=== PATIENT | male | born 1980 | race Caucasian/White ===

== ENCOUNTER 2022-10-07 03:38 | Observation (INO) ==
--- NOTE | 2022-10-07 04:14 | Emergency Department Note ---
History of Present Illness General Chief complaint: Fall Stated complaint: FALL - HURT LFT KNEE S/P REPAIR ON MON,RT FOOT FERCHO Time Seen by Provider: 10/07/22 03:55 History of Present Illness Maximum Pain Intensity: 7 This 42-year-old who had left knee debridement and washout last week by Dr. Garcia for chronic infection that was done by an outside facility presents to the ER complaining of fall down the steps with opening up his knee and injuring his right foot Location: Left knee and right foot Quality: Painful Severity: Moderate Duration: Tonight Timing: Tonight Context: Patient was concerned and came in Modifying factors: better with rest; worse with movement Patient denies head injury, chest pain, dyspnea, numbness, tingling, localized weakness. He is currently on Keflex for the knee infection. Home Medications Medication Instructions Recorded Confirmed Type lisinopril 20 mg tablet 20 mg PO BID 09/27/22 10/02/22 History naproxen sodium 220 mg tablet 220 mg PO BID PRN Pain 09/27/22 10/02/22 History (Aleve) cephalexin 500 mg capsule 500 mg PO QID 14 days #56 caps 10/02/22 Rx oxycodone-acetaminophen 5 mg-325 1 tab PO Q4H PRN pain #30 tabs 10/02/22 Rx mg tablet (Endocet) Allergies Allergy/AdvReac Type Severity Reaction Status Date / Time suture AdvReac Severe body Verified 10/02/22 07:35 rejection Past Med/Surg History Medical History History of COVID-19 2019 > mild symptoms Hypertension Kidney stones Obesity Surgical History H/O knee surgery left knee debridement and wound vac placement S/P cystoscopy with ureteral stent placement S/P left knee arthroscopy multiple knee surgeries for post op complication S/P tendon repair left knee/patella tendon repair (initial surgery at [facility] 08/2020) Family History Other No family history of adverse response to anesthesia Social History Smoking Status: Never smoker Second Hand Exposure: No; Hx Alcohol Use: Yes Alcohol type: beer Hx Substance Use: No Preferred Language: Frisian Communication Ability: Effective Rehab Nurse Required: No Beliefs That Will Affect Care: None Current Living Situation: Alone Feels Safe at Home: Yes Assistive Devices: None Review of Systems A total of 10 systems reviewed and were otherwise negative Physical Exam Vital Signs Vital Signs - 24 hr 10/07/22 03:43 10/07/22 05:38 Temperature 36.6 C Temperature Source Temporal Artery Scan Pulse Rate 104 H Pulse Rate [Finger] 98 H Respiratory Rate 20 18 Respiratory Depth Normal Blood Pressure 111/69 Blood Pressure [Right Arm] 121/81 Blood Pressure Mean 83 Blood Pressure Mean [Right Arm] 94 Blood Pressure Position Sitting Pulse Oximetry 97 96 Oxygen Delivery Method Room Air Room Air Sepsis Recent Fever Within 48 Hours No Sepsis New/Unexplained Change in Mental Status N/A Sepsis Action Taken by Nursing No Action Required VITALS: Vitals are noted on the nurse's note and reviewed by myself. Vital signs stable. GENERAL: Pleasant patient, in no acute distress, nondiaphoretic, well-developed well-nourished. SKIN: Left knee with meek ripped open with minimal bleeding and wound VAC present, rest the skin was without rashes, erythema, edema, or bruising. There is no tenting of the skin. Capillary reflex less than 2 seconds. HEAD: Normocephalic atraumatic. EARS: External auditory canals clear, tympanic membranes pearly simth without erythema or effusion bilaterally. EYES: Pupils equal round and reactive to light and accommodation. Conjunctivae without injection, sclerae without icterus. Extraocular movements intact. NOSE: Patent, turbinates without inflammation or discharge. No sinus tenderness. MOUTH: Mucous membranes moist. Pharynx without erythema or exudate. Uvula midline. Airway patent. Tongue does not deviate. NECK: Supple without nuchal rigidity. Cervical spine is nontender. No JVD. HEART: Regular rate and rhythm LUNGS: Clear to auscultation bilaterally without wheezes, rales or rhonchi. No retractions or accessory muscle use. ABDOMEN: Positive bowel sounds x 4. Normal tympanic percussion. Soft, nonte nder, without masses or organomegaly. Salas sign negative. No guarding or rebound tenderness. No CVA tenderness MUSCULOSKELETAL: No muscle atrophy noted. Left knee with meek ripped open with minimal bleeding and wound VAC present, right lateral heater tender to palpation with contusion present. Right ankle barreto and knee nontender to palpation. Left barreto foot and ankle nontender to palpation. Pedal pulses +2 equal and present bilaterally. NEURO: Patient was alert and oriented to person place and time. Normal sensation to light and sharp touch. No focal neurological deficits. Course Administered Medications Discontinued Medications Acetaminophen (Acetaminophen 500 Mg Tab) Confirm Administered Dose 1,000 mg .ROUTE .STK-MED ONE Stop: 10/07/22 04:42 Last Admin: 10/07/22 04:43 Dose: 1,000 mg Documented By: MYRIAM Lidocaine HCl (Lidocaine 1% Local 20 Ml Vial) 20 ml INFIL NOW ONE Stop: 10/07/22 04:33 Last Admin: 10/07/22 04:44 Dose: 20 ml Documented By: CON Medical Decision Making Medical Records Attestation: I reviewed the patient's medical records. Home Medications Current Medication List: was personally reviewed by me Laboratory Data Result diagrams: 10/07/22 05:36 10/07/22 05:36 Lab Results 10/07/22 Range/Units 05:36 WBC 14.79 H (4.8-10.8) K/ul RBC 4.65 (4.63-6.08) M/uL Hgb 14.5 (14.0-18.0) g/dl Hct 40.6 (40.1-51.0) % MCV 87.3 (80.0-100.0) fL MCH 31.2 (25.0-34.0) pg MCHC 35.7 (32.0-36.0) g/dL RDW Std Deviation 36.8 (36.4-46.3) fL RDW Coeff of Abelino 11.6 (11.5-14.5) % Plt Count 301 (130-400) K/uL MPV 9.4 (9.4-12.4) fL Immature Gran % (Auto) 0.5 % Neut % (Auto) 81.5 % Lymph % (Auto) 12.0 % Garrard % (Auto) 5.3 % Eos % (Auto) 0.5 % Baso % (Auto) 0.2 % Neut # (Auto) 12.04 H (1.4-6.5) K/uL Lymph # (Auto) 1.78 (1.2-3.4) K/uL Garrard # (Auto) 0.78 (0.24-0.82) K/uL Eos # (Auto) 0.08 (0-0.50) K/uL Baso # (Auto) 0.03 (0-0.2) K/uL Immature Gran # (Auto) 0.08 H (0.00-0.02) K/uL Imaging Data Attestation: I personally reviewed and interpreted this imaging study as follows: MDM Narrative Prior records/ancillary studies reviewed and summarized above. Nursing notes reviewed. Additional history obtained from family. The patient's history was concerning for fall with recent surgery. Differential diagnosis: Etiologies such as fracture, dislocation, contusion, laceration, vascular injury, as well as others were entertained. Physical examination: As above. ER treatment provided: Splinting Indication: Foot fracture Location: Right foot Type of fx: Closed midshaft oblique Verbal consent obtained. Risks and benefits were explained with the usual cu stomary discussion. The injured extremity was identified. The patient was prepped and measured for the placement of a posterior ortho-glass splint. Splint applied in the standard fashion over a layer of webril and secured using an elastic bandage. Set into a position of function. Normal neurovascular status after placement verified by me. The patient tolerated the procedure well and the care of the splint was discussed with the patient/family. No complications. Laceration Repair Location: Left knee Total length: 10 cm Complexity: Simple Verbal consent was obtained after the risks and benefits were explained, including but not limited to bleeding, scarring, infection, pain, and bone/joint/nerve damage. At this time, the risks of the procedure are less than the risks of NOT performing the procedure. A time out was taken and the correct patient and site identified. The skin was prepped with betadine. The target area was anesthetized with 10 ml of 1% lidocaine without epinephrine. Copious irrigation was performed using nss. The skin was re-prepped with betadine and a sterile field set. The wound was explored for foreign bodies and none found. Examination revealed no injury to deep structures such as tendons, bone, or significant blood vessels. Debridement was not performed. The wound edges were approximated using 20 meek. Hemostasis and excellent approximation was achieved. Antibacterial ointment and a sterile dressing applied. Detailed wound care instructions and signs and symptoms of infection reviewed with the pt. No complications and the patient tolerated the procedure well. On reassessment the patient felt better. Diagnostics interpretation by me: Imaging studies: Foot x-ray concerning for fifth metatarsal shaft fracture per my interpretation Knee x-ray with no acute fracture, dislocation or effusion per my interpretation Consultation: A consultation was placed with orthopedics, Dr. Lorenzana. the case was discussed and diagnostics were reviewed. He recommends washing out the open wound and we stapling it. He recommends posterior splint for the foot fracture. He will admit the patient and see him in the morning. Exam and history seem consistent with foot fracture and reopening of the meek to the left knee. Ortho was consulted and recommends repairing the laceration and splinting the fracture. This was done as above. Patient was admitted to his service. By the evaluation outlined above emergent etiologies such as di slocation as well as others were deemed relatively unlikely. The pt informed about the findings as listed above. All questions were answered and pleased with the treatment. The chart was completed utilizing [employer] Speech voice recognition software. Grammatical errors, random word insertions, pronoun errors, and incomplete sentences are an occassional consequence of this system due to software limitations, ambient noise, and hardware issues. Any formal questions or concerns about the content, text, or information contained within the body of this dictation should be directly addressed to the physician photo studio assistant for clarification. Impression & Plan Open knee wound, Foot fracture, right, Fall Discharge Plan Visit Data Chief Complaint: Fall Stated Complaint: FALL - HURT LFT KNEE S/P REPAIR ON MON,RT FOOT FERCHO ED Provider: Steph Rojas ED Midlevel Provider: Keisha Bonilla Discharge Problem: Open knee wound, Foot fracture, right, Fall Patient Disposition: Admitted As Inpatient Condition: Good Discharge Instructions Krames/Other Patient Handouts: ED Fracture, Foot Activity Restrictions/Additional Instructions: Forms Stand Alone Forms: Virtual Emergency Department, Important Visit Information Prescriptions Prescriptions: No Action lisinopril 20 mg Tablet 20 mg PO BID naproxen sodium [Aleve] 220 mg Tablet 220 mg PO BID PRN (Reason: Pain) cephalexin 500 mg capsule 500 mg PO QID 14 Days Qty: 56 0RF oxycodone-acetaminophen [Endocet] 5-325 mg tablet 1 tab PO Q4H PRN (Reason: pain) Qty: 30 0RF Referrals Referrals: Figueroa Ivy D.O. [Primary Care Provider] - : Open knee wound Qualifiers: Encounter type: initial encounter Laterality: left Qualified Code(s): S81.002A - Unspecified open wound, left knee, initial encounter
[2022-10-07] MEDS ORDERED: LIDOCAINE 1% LOCAL 20 ML VIAL INFIL ONE (04:32)
[2022-10-07] MEDS ORDERED: ACETAMINOPHEN 500 MG TAB ONE (04:41)
[2022-10-07] MEDS ORDERED: VANCOMYCIN HCL 2,250 MG in SODIUM CHLORIDE 0.9% 500 ML IV ONE (05:18)
[2022-10-07] MEDS ORDERED: VANCOMYCIN CONSULT ACTIVE PRN (05:18)
[2022-10-07 05:50] LABS: Basophils # (auto) 0.03 K/uL (0-0.2); Basophils % (auto) 0.2 %; Eosinophils # (auto) 0.08 K/uL (0-0.50); Eosinophils % (auto) 0.5 %; Hematocrit (blood only) 40.6 % (40.1-51.0); Hemoglobin 14.5 g/dl (14.0-18.0); Immature Granulocytes # (auto) 0.08 K/uL (0.00-0.02); Immature Granulocytes % (auto) 0.5 %; Lymphocytes # (auto) 1.78 K/uL (1.2-3.4); Mean Corpuscular Hemoglobin 31.2 pg (25.0-34.0); Mean Corpuscular Hgb Conc 35.7 g/dL (32.0-36.0); Mean Corpuscular Volume 87.3 fL (80.0-100.0); Mean Platelet Volume 9.4 fL (9.4-12.4); Monocytes # (auto) 0.78 K/uL (0.24-0.82); Monocytes % (auto) 5.3 %; Neutrophils # (auto) 12.04 K/uL (1.4-6.5); Neutrophils % (auto) 81.5 %; Platelet Count 301 K/uL (130-400); RDW Coefficient of Variation 11.6 % (11.5-14.5); RDW Standard Deviation 36.8 fL (36.4-46.3); Red Blood Count 4.65 M/uL (4.63-6.08); White Blood Count 14.79 K/ul (4.8-10.8)
[2022-10-07 06:11] LABS: Albumin Globulin Ratio 1.2 (0.9-2); Albumin Level 3.9 gm/dl (3.4-5.0); BUN Creatinine Ratio 13.4 (10-20); Bilirubin,Total 0.6 mg/dl (0.2-1.0); Calcium 8.4 mg/dl (8.5-10.1); Creatinine Clr Calc Pharmacy 137.7 ml/min; Est GFR (African American) 125.5 ml/min; Est GFR (Non-African American) 108.3 ml/min; Globulin 3.2 gm/dl (2.5-4.0); Potassium 4.2 mmol/L (3.5-5.1); Total Protein 7.1 gm/dl (6.0-8.3)
--- NOTE | 2022-10-07 07:41 | XRay Report ---
XR knee LT 1 or 2V routine CLINICAL HISTORY: fall, pain, recent OR COMPARISON STUDY: None. FINDINGS: There are anterior skin meek with malposition of the superior aspect of the skin meek suggesting opening of the postoperative incision. Small knee effusion. Anterior soft tissue swelling . No acute fracture or dislocation within the left knee. IMPRESSION: 1. No acute fracture or dislocation within the left knee. 2. Malposition of the superior skin meek suggesting opening of the postoperative incision. ACT 112: Negative or not required by law. Electronically signed by: Gee Ibrahim M.D. 10/07/2022 7:39 AM
--- NOTE | 2022-10-07 07:43 | XRay Report ---
RIGHT FOOT 3 VIEWS CLINICAL HISTORY: Fall with right foot injury. FINDINGS: 3 views of the right foot are obtained. No prior studies are available for comparison at th e time of dictation. The skeletal structures are well mineralized. There is a comminuted spiral fract ure through the mid shaft of the fifth metatarsal. The largest fragments are displaced by up to 3 mm. Overlying soft tissue edema is noted. No additional fracture is seen. The joint spaces of the foot a re maintained. IMPRESSION: Fifth metatarsal fracture as above. Electronically signed by: Mak Law M.D. 10/07/2022 7:42 AM
[2022-10-07] MEDS ORDERED: diphenhydrAMINE 50 MG/ML VIAL IV PRN (08:07)
[2022-10-07] MEDS ORDERED: ZOLPIDEM TARTRATE 5 MG TAB PO PRN (08:07)
[2022-10-07] MEDS: SODIUM CHLORIDE 0.9% 1000ML 1,000 ML IV SCH (09:12)
[2022-10-07] MEDS: lisinopril 20 MG TAB PO SCH ×2 (11:04→20:23)
--- NOTE | 2022-10-07 12:27 | Consultation Report ---
CHIEF COMPLAINT: Left knee pain and right foot pain. HISTORY OF PRESENT ILLNESS: The patient is a 42-year-old male just 5 days status post operative I an d D on his left knee by Dr. Garcia. Per the patient, he has a complex history of left knee problems. He states he had a left knee patellar tendon repair by an outside physician in [place] approximately 2 years ago. It sounds like he had several subsequent procedures for postsurgical infection. Again , Dr. Garcia did a repeat operative I and D on 10/02/2022. Patient had a wound VAC in place. Appar ently, the patient was coming down the steps early this morning when he fell, injuring the left knee and right foot. PHYSICAL EXAMINATION: On exam, the patient is resting in bed. He has a splint in place on his right foot and a knee immobilizer on the left knee. Per the ED note, patient had his left knee anesthetiz ed, washed out, and repeat closure performed. I did not take down his dressing. Patient also noted to have a right fifth metatarsal fracture and the Orthoglass splint placed on the right lower leg. H is cultures from his operative procedure on 10/02/2022 were reviewed and shows Staphylococcus aureus, not MRSA. PAST MEDICAL HISTORY: Includes hypertension. PAST SURGICAL HISTORY: Multiple left knee surgeries as above, cystoscopy. MEDICATIONS: Include lisinopril 20 mg b.i.d., cephalexin 500 mg q.i.d., oxycodone/acetaminophen p.r. n. ALLERGIES: No known drug allergies. 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 REVIEW OF SYSTEMS: Noncontributory. ASSESSMENT: A 42-year-old male with chronic left knee pain and problems with current wound dehiscenc e secondary to fall down some stairs earlier today. The patient also noted to have a right foot 5th metatarsal fracture. PLAN: Dr. Lorenzana reviewed the patient's chart. The decision was made to admit the patient to the hospital. He will be n.p.o. after midnight and taken to the operating room tomorrow for repeat I an d D and wound closure. Dr. Lorenzana will discuss with the patient possible need for a PICC line and long-term IV antibiotics. Consider infectious disease consult. We will follow along as indicated. Master Meade PA-C dictating for Dr. Lorenzana. Job ID: [id number]
[2022-10-07] MEDS: KETOROLAC 30 MG/ML VIAL IV PRN (16:10)
--- NOTE | 2022-10-07 16:20 | Pharmacy Report ---
Pharmacy PK ABX Note - Date of Service October 07, 2022 - Assessment and Plan Assessment 42 year old M receiving IV Vancomycin for treatment of skin soft tissue infxn of L knee. * PMHx significant for postsurgical infxn of this L knee in the past. Underwent I&D on 10/02/22 and OR cx grew MSSA x 2. * Vancomycin being started for now. Afebrile. White count of 15k. Renal fxn at baseline. To OR for I&D tomorrow. Plan Vancomycin * Loading dose: 2250 mg IV x 1 * Maintenance dose: 1250 mg IV every 12 hours * Regimen is predicted to achieve target AUC/BART of 400-600 mg/L.hr * Random level ordered for: 10/09/22 Pharmacy will continue to follow and will adjust dose/frequency as necessary. Thank you. Pharmacy has transitioned to AUC monitoring for vancomycin. AUC/BART is the preferred PK/PD target and is associated with decreased risk of nephrotoxicity compared to traditional trough targets.
[2022-10-07] MEDS: VANCOMYCIN HCL 1,250 MG in SODIUM CHLORIDE 0.9% 250 ML IV SCH (18:01)
[2022-10-08] MEDS: SODIUM CHLORIDE 0.9% 1000ML 1,000 ML IV SCH ×2 (01:44→02:46)
[2022-10-08] MEDS: VANCOMYCIN HCL 1,250 MG in SODIUM CHLORIDE 0.9% 250 ML IV SCH (05:06)
[2022-10-08 06:32] LABS: Creatinine Clr Calc Pharmacy 114.1 ml/min; Est GFR (African American) 107.7 ml/min; Est GFR (Non-African American) 92.9 ml/min
[2022-10-08] MEDS ORDERED: ONDANSETRON INJ 2 MG/ML 2 ML VIAL ONE (06:57)
[2022-10-08] MEDS ORDERED: PROPOFOL IV EMULSION 10 MG/ML 20 ML VIAL IV ONE (06:57)
[2022-10-08] MEDS ORDERED: LIDOCAINE 2% 2 ML VIAL/AMP(20MG/ML) INFIL ONE ×2 (06:57)
[2022-10-08] MEDS ORDERED: fentaNYL citrate 100 MCG/2 ML VIAL ONE ×2 (06:57→08:42)
[2022-10-08] MEDS ORDERED: MIDAZOLAM HCL 1 MG/ML 2ML VIAL ONE (06:57)
[2022-10-08] MEDS ORDERED: DEXAMETHASONE SOD INJ 4 MG/ML VIAL ONE (06:57)
[2022-10-08] MEDS ORDERED: HYDROmorphone INJ 1 MG/ML SYRINGE IV PRN (07:26)
[2022-10-08] MEDS ORDERED: FLUMAZENIL 0.1 MG/1 ML 10 ML VIAL IV PRN (07:26)
[2022-10-08] MEDS ORDERED: ONDANSETRON INJ 2 MG/ML 2 ML VIAL IV PRN (07:26)
[2022-10-08] MEDS ORDERED: PROMETHAZINE HCL 12.5 MG in SODIUM CHLORIDE 0.9% 50 ML IV PRN (07:26)
[2022-10-08] MEDS ORDERED: NALOXONE HCL 0.4 MG/1 ML VIAL/CARP IV PRN ×2 (07:26→10:18)
[2022-10-08] MEDS ORDERED: LABETALOL HCL IV 5 MG/ML 20ML IV PRN (07:26)
[2022-10-08] MEDS ORDERED: ATROPINE SULFATE 0.1 MG/ML 10ML SYR IV PRN (07:26)
[2022-10-08] MEDS ORDERED: ePHEDrine sulfate 50 MG/ML AMP IV PRN (07:26)
--- NOTE | 2022-10-08 07:26 | Anesthesiology Consultation ---
Date of Service October 08, 2022 Assessment & Plan Chart Review Chart Review: Acceptable Risk for Surgery and Patient NOT seen in Pre Admission Testing Consults Requested none ASA ASA2 Proposed Anesthesia Anesthesia Type: General Risk / Benefits Reviewed With: PT / POA / Parent / Guardian, Accepts Plan and Informed Consent Obtained History Surgery Operation Date: 10/08/22 07:30 Proposed Procedures p Incision and Drainage Knee(Left) - Figueroa Mcgovern DO Height/Weight Height: 5 ft 8 in Weight: 107 kg Allergies Allergy/AdvReac Type Severity Reaction Status Date / Time suture AdvReac Severe body Verified 10/07/22 09:05 rejection Medications Home Medications Medication Instructions Recorded Confirmed Last Taken lisinopril 20 mg tablet 20 mg PO BID 09/27/22 10/07/22 10/01/22 19:00 naproxen sodium 220 mg tablet 220 mg PO BID PRN Pain 09/27/22 10/07/22 09/29/22 (Aleve) cephalexin 500 mg capsule 500 mg PO QID 14 days #56 caps 10/02/22 10/07/22 Unknown oxycodone-acetaminophen 5 mg-325 1 tab PO Q4H PRN pain #30 tabs 10/02/22 10/07/22 Unknown mg tablet (Endocet) Active Medications Generic Name Dose Route Start Last Admin Trade Name Freq PRN Reason Stop Dose Admin Sodium Chloride 1,000 mls @ 100 mls/hr 10/07/22 08:15 10/08/22 02:46 Nss 1000ml IV 11/06/22 08:14 100 mls/hr .Q10H SHELBI Administration Vancomycin HCl 1,250 mg/ 275 mls @ 200 mls/hr 10/07/22 18:00 10/08/22 06:41 Sodium Chloride IV 10/14/22 17:59 Infused Q12H SHELBI Infusion Protocol Ketorolac Tromethamine 30 mg 10/07/22 08:07 10/07/22 16:10 Ketorolac 30 Mg/Ml Vial IV 10/12/22 08:06 30 mg Q6H PRN Administration Pain Lisinopril 20 mg 10/07/22 09:00 10/07/22 20:23 Lisinopril 20 Mg Tab PO 11/06/22 08:59 20 mg BID SHELBI Administration NPO Date Last Intake of Fluids: 10/07/22 Time Last Intake of Fluids: 22:00 Date Last Intake of Solids: 10/07/22 Time Last Intake of Solids: 18:00 Past Medical History Medical History History of COVID-2019 > mild symptoms Hypertension Kidney stones Obesity Exercise / Class Metabolic Activity II 4-5 Yardwork/Stairs/Walk up hill Past Family History Family History Other No family history of adverse response to anesthesia Past Surgical History Surgical History H/O knee surgery left knee debridement and wound vac placement S/P cystoscopy with ureteral stent placement S/P left knee arthroscopy multiple knee surgeries for post op complication S/P tendon repair left knee/patella tendon repair (initial surgery at [facility] 08/2020) Past Anesthesia History No Hx of Anesthesia Complications and No Family Hx of Anesthesia Complications History of PONV No Hx of PONV and No Hx of Motion Sickness Social History Smoking Status: Never smoker tobacco type: smokeless tobacco Do You Dip or Chew Tobacco: Yes Hx Alcohol Use: Yes Alcohol type: beer alcohol intake frequency: a few times a week Hx Substance Use: No substance use type: does not use Physical Exam Vital Signs Last Vital Signs Temp 37.0 C 10/08/22 07:02 Pulse 79 10/08/22 07:02 Resp 18 10/08/22 07:02 BP 130/83 10/08/22 07:02 Pulse Ox 98 10/08/22 07:02 O2 Del Method 10/08/22 07:02 Constitutional + obese; no acute distress ENMT Mouth: no dentition abnormality Thyromental Distance: > or= 3.5 Finger Breadths Mallampati Class: II Neck normal visual inspection, trachea midline and + facial hair; neck extension not limited Respiratory normal respiratory effort Auscultation: lungs clear to auscultation bilaterally Cardiovascular Rate/Rhythm: regular rate and regular rhythm Heart Sounds: no murmur Vessels: no carotid bruit Musculoskeletal Spine: normal cervical ROM and no pain with cervical ROM Extremities: full ROM of extremities Neurologic moves all extremities Motor/Sensory: no sensory deficit Psychiatric Orientation: alert and oriented x 3 Testing Laboratory Results 10/07/22 05:36 10/08/22 05:20 Electrocardiogram Date: 10/02/22 Findings: + RAMESH @ (@ 71)
--- NOTE | 2022-10-08 07:34 | History & Physical Bridge Note ---
Date of Service October 08, 2022 History & Physical Bridge Note I have examined the patient, reviewed the History & Physical and in the interval since the performance of the History & Physical I have noted the following changes of clinical significance: no changes notedMet with patient. We did discussion regarding risk benefits potential complications of left knee irrigation and debridement for his wound dehiscence. Include but not limited to infection, DVT and need for future surgery. He has elected to proceed with surgical intervention and written consent was obtained.
[2022-10-08] MEDS ORDERED: PHENYLEPHRINE HCL 10 MG/ML VIAL ONE (08:33)
[2022-10-08] MEDS: fentaNYL citrate 100 MCG/2 ML VIAL IV PRN ×3 (09:20→09:30)
--- NOTE | 2022-10-08 09:43 | Anesthesiology Progress Note ---
Date of Service October 08, 2022 Anesthesia Post Procedure Vital Signs Vital Signs: Temp Pulse Pulse Pulse Resp BP BP 10/08/22 09:30 92 H 16 126/78 10/08/22 09:20 96 H 19 124/91 10/08/22 09:12 36.4 C L 105 H 18 103/74 10/08/22 07:02 37.0 C 79 18 130/83 10/07/22 20:00 10/07/22 22:51 36.7 C 89 18 113/75 10/07/22 15:51 37.1 C 95 H 16 135/80 10/07/22 15:03 108 H 18 139/88 10/07/22 14:30 91 H 17 117/79 10/07/22 14:00 96 H 16 118/76 10/07/22 13:30 97 H 18 110/72 10/07/22 13:00 96 H 17 109/80 10/07/22 12:30 93 H 16 112/81 10/07/22 12:00 109 H 17 133/86 10/07/22 11:30 93 H 15 114/74 10/07/22 11:00 89 15 110/76 10/07/22 10:30 90 15 114/74 10/07/22 10:02 90 16 112/74 10/07/22 10:00 90 14 112/74 Pulse Ox O2 Del Method O2 Flow Rate 10/08/22 09:30 99 Nasal Cannula 2 10/08/22 09:20 95 Nasal Cannula 2 10/08/22 09:12 94 Nasal Cannula 2 10/08/22 07:02 98 Room Air 10/07/22 20:00 Room Air 10/07/22 22:51 98 Room Air 10/07/22 15:51 97 Room Air 10/07/22 15:03 98 Room Air 10/07/22 14:30 96 Room Air 10/07/22 14:00 96 Room Air 10/07/22 13:30 95 Room Air 10/07/22 13:00 95 Room Air 10/07/22 12:30 95 Room Air 10/07/22 12:00 96 Room Air 10/07/22 11:30 96 Room Air 10/07/22 11:00 96 Room Air 10/07/22 10:30 95 Room Air 10/07/22 10:02 96 Room Air 10/07/22 10:00 96 Room Air Pain Intensity Right Foot: Pain Intensity: 2 Left Knee: Pain Intensity: 4 Transfer of Care Handoff Completed per policy Notes Mental Status: alert / awake / arousable Patient Amnestic to Procedure: Yes Nausea / Vomiting: adequately controlled Pain: adequately controlled Airway Patency, RR, SpO2: stable & adequate BP & HR: stable & adequate Hydration State: stable & adequate Anesthetic Complications: no major complications apparent
[2022-10-08] MEDS: lisinopril 20 MG TAB PO SCH (10:16)
[2022-10-08] MEDS ORDERED: MAGNESIUM HYDROXIDE SUSP 30 ML UDC PO PRN (10:18)
[2022-10-08] MEDS ORDERED: bisacodyL 10 MG SUPP PR PRN (10:18)
[2022-10-08] MEDS ORDERED: oxyCODONE HCL IR 5 MG TAB (IMMEDIATE RELEASE) PO PRN (10:18)
--- NOTE | 2022-10-08 10:23 | Post Operative Brief Note ---
Immediate Post Op Note v1 Date of Surgery October 08, 2022 Pre & Post Diagnosis Operation Date: 10/08/22 07:30 Pre-Op Diagnosis: Wound Dehiscence Post-Op Diagnosis: Wound Dehiscence I identified the patient and participated in the time-out.: Yes Procedure Operation Date: 10/08/22 07:30 Actual Procedures p Incision and Drainage left Knee(Left) - Kam Lorenzana DO Surgeon Kam Lorenzana DO Desktop Analyst none Estimated Blood Loss 35 Findings Consistent with Post-Op Diagnosis See dictation Complications None
--- NOTE | 2022-10-08 10:28 | Operative Report ---
Post Operative Report Pre & Post Diagnosis Operation Date: 10/08/22 07:30 Pre-Op Diagnosis: Wound Dehiscence Post-Op Diagnosis: Wound Dehiscence I identified the patient and participated in the time-out.: Yes Procedure Operation Date: 10/08/22 07:30 Actual Procedures p Incision and Drainage left Knee(Left) - Kam Lorenzana DO Surgeon Kam Lorenzana DO Machine Binder Stripper none Estimated Blood Loss 35 Findings Consistent with Post-Op Diagnosis See dictation Specimens None Drains None Complications None Indications 42-year-old male who presented to [facility] emergency department after tripping and falling on the carpet yesterday. He has a history of numerous left knee surgeries and developed a chronic infection. He had recently underwent right knee irrigation and debridement with takedown of scar tissue earlier last week. As result of his fall he sustained a dehiscence of his wound. He was admitted to orthopedic service with planned irrigation and debridement and closure of the wound. We had a lengthy discussion regarding risk benefits potential complications. After reviewing these he elected proceed with surgical intervention and written consent was obtained. Description of Procedure Patient was properly identified in the preoperative holding area and the left lower extremity was marked. He had been receiving vancomycin per protocol. He was taken back to the operative suite where he received general anesthesia. Timeout was then performed. [place] were then removed from the incision and the left lower extremity was prepped and draped in the standard orthopedic fashion. The remainder of the incision that had not dehisced was then further opened using a scalpel to cut through the residual sutures. This revealed a tear inv olving the medial retinaculum of the knee with dehiscence of that wound as well along the superior aspect. There is also one portion of the tear extending directly medial near the superior medial portion of the patella. Medial parapatellar arthrotomy was then reopened and any residual PDS sutures were then removed. Any devitalized tissue was then debrided using a elevator as well as a rongeur. The knee was then copiously irrigated with 6 L of normal saline solution as well as dilute Betadine solution. Medial parapatellar arthrotomy was then closed using a combination of 1-0 PDS suture in an interrupted fashion followed by running oh looped PDS suture. Subcutaneous tissues were then copiously irrigated and closed using 2-0 PDS suture followed by meek for the skin. A sterile Silverlon dressing was then placed followed by Webril and Jose bandage and finally a knee immobilizer. Patient tolerated the procedure well and was taken to recovery room in hemodynamically stable condition. I attest to the content of the Intraoperative Record and any orders documented therein. Any exceptions are noted below.
[2022-10-08] MEDS ORDERED: SODIUM CHLORIDE 0.9% 1000ML 1,000 ML IV SCH (10:30)
[2022-10-08] MEDS ORDERED: ASPIRIN 81 MG ECTAB PO SCH (10:45)
[2022-10-08] MEDS: KETOROLAC 30 MG/ML VIAL IV PRN (10:50)
[2022-10-08] MEDS ORDERED: DOCUSATE SODIUM 100 MG CAP PO SCH (21:00)
[2022-10-08] MEDS ORDERED: SENNA 8.6 MG TAB PO SCH (21:00)
[2022-10-09] MEDS ORDERED: VANCOMYCIN LEVEL ONE (05:30)
[2022-10-09] MEDS ORDERED: MULTIVITAMIN TAB PO SCH (09:00)
== END 2022-10-08 17:24 | disposition home or self-care (01) ==
LOC: ED 03:38 → 3E 03:38